=== PATIENT | male | born 1995 | race Caucasian/White ===

== ENCOUNTER 2019-04-08 15:52 | Emergency (ER) | payer OTHER ==
[~2019-04-08] VITALS: Ht 188 cm; Wt 100.1 kg
[2019-04-08 15:55] VITALS: BP 145/74
[2019-04-08] MEDS ORDERED: KETOROLAC 30 MG/1 ML ONE (16:20)
[2019-04-08] MEDS ORDERED: DIAZEPAM 5 MG TABLET ONE (16:20)
[2019-04-08] MEDS ORDERED: DIAZEPAM 5 MG TABLET PO ONE ×2 (16:30)
[2019-04-08] MEDS ORDERED: PLEASE ENTER ALLERGIES MC SCH (16:30)
[2019-04-08] MEDS ORDERED: KETOROLAC 30 MG/1 ML IM ONE (16:30)
== END 2019-04-08 17:11 | disposition home or self-care (01) ==
LOC: ED 16:33
DX: S29.012A Strain of muscle and tendon of back wall of thorax, initial encounter (principal); X58.XXXA Exposure to other specified factors, initial encounter; Y93.89 Activity, other specified; Y92.89 Other specified places as the place of occurrence of the external cause; Y99.8 Other external cause status
CPT/HCPCS: 72072; 93005; 96372; 99283; J1885